=== PATIENT | male | born 1995 | race Caucasian/White ===

== ENCOUNTER 2020-06-23 13:47 | Emergency (ER) | payer OTHER ==
[~2020-06-23] VITALS: Ht 175.3 cm; Wt 77.1 kg
[2020-06-23] MEDS ORDERED: NORCO 5-325 TA1 EAC2 PO (14:23)
[2020-06-23] MEDS ORDERED: BACITRACIN28.4 G1 TOP (14:23)
[2020-06-23] MEDS ORDERED: IBU600 MG PO (14:23)
[2020-06-23 14:40] VITALS: BP 138/80
== END 2020-06-23 14:41 | disposition home or self-care (01) ==
LOC: M.ERS 13:47
DX: T23.201A Burn of second degree of right hand, unspecified site, initial encounter (principal); T31.0 Burns involving less than 10% of body surface; X08.8XXA Exposure to other specified smoke, fire and flames, initial encounter; Y93.89 Activity, other specified; Y92.89 Other specified places as the place of occurrence of the external cause; Y99.8 Other external cause status